=== PATIENT | female | born 1975 | race Caucasian/White ===

== ENCOUNTER 2025-03-30 21:26 | Emergency (ER) | payer OTHER ==
[~2025-03-30] VITALS: Ht 160 cm; Wt 79.8 kg
[2025-03-30 22:07] VITALS: O2SAT 98
[2025-03-30] MEDS ORDERED: LIDOCAINE HCL 1% 20ML VIAL INFIL ONE (23:45)
[2025-03-30] MEDS: TETANUS, DIPHTHERIA, PERTUSSIS VAC/PF 0.5ML (>10YR OLD) IM ONE (23:57)
[2025-03-31 01:01] VITALS: BP 118/64; PULSE 56; RESP 18; TEMP 36.5; O2SAT 99
== END 2025-03-31 01:04 | disposition home or self-care (01) ==
LOC: ER 21:26
DX: S61.213A Laceration without foreign body of left middle finger without damage to nail, initial encounter (principal); X58.XXXA Exposure to other specified factors, initial encounter; Y93.89 Activity, other specified; Y92.89 Other specified places as the place of occurrence of the external cause; Y99.8 Other external cause status
CPT/HCPCS: 90715; 12002; 90471; 99283; J2003; Z7610